=== PATIENT | male | born 1970 | race Two or more races ===

== ENCOUNTER → 2017-01-30 | Emergency (ER) | payer MEDICAID, OTHER ==
[~2017-01-30] VITALS: Ht 177.8 cm; Wt 82.1 kg
[~2017-01-30] MED LIST: BACTRIM DS TAB1 EAC1 ORAL; GLIPIZIDE5 MG ORAL; IBUPROFEN600 MG ORAL; METFORMIN HCL500 M1 ORAL
[2017-01-30 21:55] VITALS: BP 131/81
--- NOTE | 2017-01-30 22:19 | Emergency Room Report ---
History of Present Illness General Chief Complaint: Skin Rash/Abscess Source: Patient Present Illness HPI Is a 46-year-old male with no past medical history. He presents with chief complaint of swelling and mass to the left thigh. Onset for last couple days. He went to see his primary care the other day when he was the size of a pimple. Now is more swollen. Tenderness. No fever chills but no nausea no vomiting. No chest pain. Allergies: Coded Allergies: No Known Allergies (Unverified , 01/30/17) Patient History Past Medical History: see triage record, old chart reviewed Past Surgical History: none Pertinent Family History: none Social History: Denies: smoking Immunizations: other Reviewed Nursing Documentation: PMH: Agreed, PSxH: Agreed Nursing Documentation-PMH Past Medical History: No History, Except For Hx Diabetes: Yes - dm2 Review of Systems Eye: Denies: blurred vision, eye pain ENT: Denies: ear pain, nose congestion, throat swelling Respiratory: Denies: cough, shortness of breath Cardiovascular: Denies: chest pain, palpitations Gastrointestinal: Denies: abdominal pain, diarrhea, nausea, vomiting Musculoskeletal: Denies: back pain, joint pain Skin: Denies: rash Neurological: Denies: headache, numbness Endocrine: Denies: increased thirst, increased urine Hematologic/Lymphatic: Denies: easy bruising All Other Systems: negative except mentioned in HPI Physical Exam Vital Signs Date Time Temp Pulse Resp B/P Pulse Ox O2 Delivery O2 Flow Rate FiO2 01/30/17 21:35 98.1 65 16 131/81 99 Room Air vitals stable. Sp02 EP Interpretation: reviewed, normal General Appearance: well appearing, no apparent distress, alert Head: normocephalic, atraumatic Eyes: bilateral eye EOMI, bilateral eye PERRL ENT: hearing grossly normal, normal pharynx Neck: full range of motion, supple, no meningismus Respiratory: chest non-tender, lungs clear, normal breath sounds Cardiovascular #1: regular rate, rhythm, no murmur Gastrointestinal: normal bowel sounds, non tender, no mass, no organomegaly, no bruit, non-distended Musculoskeletal: back normal, gait/station normal, normal range of motion, other - left inner thigh with tender area of 3cm with central necrosis. Psychiatric: mood/affect normal Skin: warm/dry Procedures Incision and Drainage Incision and Drainage : Consent: Verbal Site: Left proximal thigh Blade Size: 11 I & D Procedure: betadine prep, sterile drapes applied, sterile dressing applied Wound Location: lower extremity Irrigated w/ Saline (ccs): 1000 Anesthesia: 1% Lidocaine Volume Anesthetic (ccs): 3 Patient Tolerated: Well Complications: None Progress Area clean with Betadine and then chlorhexidine. Local anesthetic 1% lidocaine without epinephrine. I made a 1 cm incision. There was thick cottage cheesy- like substance expressed. There was also purulent discharge. Because of this, I made an elliptical incision and excised the capsule. Patient tolerated procedure without a problem. Medical Decision Making Diagnostic Impression: Primary Impression: Infected sebaceous cyst ER Course Patient presents with an infected sebaceous cyst. They were to remove the capsule and irrigated the wound. Patient tolerated procedure without a problem. No evidence of deep infection. No evidence of necrotizing fasciitis or foreign body. Last Vital Signs Date Time Temp Pulse Resp B/P Pulse Ox O2 Delivery O2 Flow Rate FiO2 01/30/17 21:55 98.1 65 16 131/81 99 Room Air Status: improved Disposition: HOME, SELF-CARE Condition: Stable Scripts Trimethoprim/Sulfamethoxazole 160/800* (BACTRIM DS TABLET*) 1 Each Tablet 1 TAB ORAL Q12H, #14 TAB 0 Refills Prov: CYN RHODES M.D. 01/30/17 Ibuprofen* (MOTRIN*) 600 Mg Tablet 600 MG ORAL Q8H Y for For Pain, #30 TAB 0 Refills Prov: CYN RHODES M.D. 01/30/17 Additional Instructions: Followup with your DrElsa in 2-3 days for recheck. Return if symptom worsen. CYN RHODES M.D. Jan 30, 2017 22:19
[2017-01-30 22:27] VITALS: BP 131/81
== END | disposition home or self-care (01) ==
LOC: EMR 21:50
DX: L72.3 Sebaceous cyst (principal); E11.9 Type 2 diabetes mellitus without complications
CPT/HCPCS: 10060